=== PATIENT | female | born 1985 | race Caucasian/White ===

== ENCOUNTER → 2020-03-15 15:59 | Outpatient (CLI) | payer OTHER, SELFPAY ==
[2020-03-15 16:28] LABS: COVID19 -Nasal RAPID POSITIVE (Negative)
== END ==
PROVIDERS: Visit Provider Physician Assistant
DX: U07.1 COVID-19 (principal)
CPT/HCPCS: 87635

== ENCOUNTER → 2020-08-06 15:02 | Outpatient (CLI) | payer OTHER, SELFPAY ==
[2020-08-06] MEDS: COVID-19 VACC #1, MRNA(MOD) 100 MCG/0.5 ML VIAL IM (15:09)
== END ==
PROVIDERS: Visit Provider Internal Medicine
DX: Z23 Encounter for immunization (principal)
CPT/HCPCS: 0011A; 91301

== ENCOUNTER → 2020-09-04 08:34 | Outpatient (CLI) | payer OTHER, SELFPAY ==
[2020-09-04] MEDS: COVID-19 VACC #2, MRNA(MOD) 100 MCG/0.5 ML VIAL IM (08:41)
== END ==
PROVIDERS: Visit Provider Internal Medicine
DX: Z23 Encounter for immunization (principal)
CPT/HCPCS: 0012A; 91301

== ENCOUNTER → 2021-01-04 17:32 | Outpatient (CLI) | payer OTHER, SELFPAY ==
[2021-01-04 19:43] LABS: COVID19 -Nasal RAPID Negative (Negative)
== END ==
PROVIDERS: Visit Provider Nurse Practitioner
DX: Z20.822 Contact with and (suspected) exposure to COVID-19 (principal); J31.2 Chronic pharyngitis
CPT/HCPCS: 87070; 87635

== ENCOUNTER → 2021-08-03 09:19 | Outpatient (CLI) | payer OTHER, SELFPAY ==
[2021-08-03 09:59] LABS: COVID19 -Nasal RAPID Negative (Negative)
== END ==
PROVIDERS: Referring Provider Physician Assistant; Visit Provider Physician Assistant
DX: Z20.822 Contact with and (suspected) exposure to COVID-19 (principal)
CPT/HCPCS: 87635

== ENCOUNTER 2022-09-29 13:55 | Day surgery (SDC) | payer OTHER, SELFPAY ==
[2022-09-23 15:23] VITALS: BMI 21.1
[2022-09-29 14:19] VITALS: BP 138/81; PULSE 94; RESP 17; TEMP 36.8; O2SAT 100; BMI 21.1
--- NOTE | 2022-09-29 14:32 | SUR.PREOP ---
Patient states she is not receiving anesthesia for her procedure today and declines an IV. Patient educated that IV may be necessary in case of an emergency, but patient declines. Kerry Boone RN
--- NOTE | 2022-09-29 15:03 | PM.PREOP ---
Pre-operative Note Interval Note History & Physical reviewed/Exam performed by Physician: Yes Changes to H&P: No
[2022-09-29] MEDS: EPINEPHRINE INJ (15:37)
[2022-09-29] MEDS: BUPIVACAINE 0.5% INJ (15:37)
--- NOTE | 2022-09-29 15:50 | SUR.OPER ---
Lithotomy on padded OR bed, head on pillow, patient kept her hands at her sides, Legs secured in padded yellow fins stirrups. Warm blankets placed. patient awake for procedure and able to voice concerns.
[2022-09-29] MEDS: BUPIVACAINE LIPOSOME 266 MG/20 ML VIAL INJ (15:55)
[2022-09-29] MEDS: BACITRACIN 28 GM OINT 1 APPLIC TOP (16:09)
[2022-09-29 16:27] VITALS: BP 125/84; PULSE 95; RESP 16; TEMP 36.8; O2SAT 100
--- NOTE | 2022-09-29 16:37 | SUR.PHASEII ---
Patient arrived from OR to Phase II awake and condition stable. No IV present. Dressing CDI.
--- NOTE | 2022-09-29 16:52 | PM.OP.1 ---
Operative Date/Time/Diagnoses Date of procedure: 09/29/22 Time of procedure: 16:52 Pre-op diagnosis: Hemorrhoid small external and possible internal hemorrhoid Post-op diagnosis: other (Internal hemorrhoid was confirmed and banded) Procedure & Clinicians Procedure: External hemorrhoidectomy and internal hemorrhoid band 1 pile in the right posterior position Same procedure as scheduled: Yes Indications: Ms. Cee has been dealing with this hemorrhoid for quite some time even from before COVID pandemic. It is very problematic for her. I discussed with her the risks benefits and alternatives and she wished to proceed with the above procedure. Surgeon: Leslie Apodaca Click Yes if Unassisted: Yes Anesthesia Type: Local and None (No IV was started and no sedation or other medication was given during the procedure other than subcutaneous bupivacaine and Exparel) Operative Notes Procedure in detail: Patient was taken to the operating room and placed in a lithotomy position. Bilateral SCDs were placed and a time-out was performed. The perineum was then prepped with iodine and draped in the usual fashion. I then used a bupivacaine with epinephrine to begin a an anal block on the right side. Patient tolerated this very well with little discomfort. I then placed an anoscope within the anal canal and examined for internal hemorrhoids. There was a large internal hemorrhoid in the right posterior position. I then used the banding device to place 2 bands around this. Jeane tolerated this very well. I examined the other internal hemorrhoidal piles none of which seemed markedly engorged. I next turned my attention to the external portion of the right posterior hemorrhoid. I used a 15 blade scalpel to excise the redundant skin. I placed a 3-0 chromic suture around the base of this hemorrhoid and then continued the incision removing the hemorrhoidal tissue and taking care to leave the sphincter unaffected. The hemorrhoidal tissue was removed with its overlying skin and the 3-0 chromic suture was run in a locking stitch until I reached the more external skin and I switched to a non locking running stitch. This was tied. The area was hemostatic and next I used the Exparel on the right side to do a right anal block. Some Gelfoam was placed over the operative wound. This was then covered with mesh and gauze panties. The patient tolerated this very well and went in good condition to the postoperative care unit. Complications: none Post-operative Condition: stable Disposition: PACU
== END 2022-09-29 16:53 | disposition home or self-care (01) ==
PROVIDERS: PCP Family Medicine; Referring Provider Surgery; Visit Provider Surgery
PROC: (CPT 46255; principal; 2022-09-29 15:00)
DX: K64.8 Other hemorrhoids (principal); K64.4 Residual hemorrhoidal skin tags
CPT/HCPCS: 46255; C9290; J0171

== ENCOUNTER → 2022-10-18 10:10 | Outpatient (CLI) | payer OTHER, SELFPAY | PROVIDERS: PCP Family Medicine; Visit Provider Nurse Practitioner Family | DX: J02.9 Acute pharyngitis, unspecified (principal) | CPT/HCPCS: 87070 ==

== ENCOUNTER → 2024-02-27 16:41 | Outpatient (CLI) | payer OTHER, SELFPAY | PROVIDERS: PCP Nurse Practitioner Family; Visit Provider Physician Assistant Surgical | DX: R30.0 Dysuria (principal); R39.15 Urgency of urination; N39.0 Urinary tract infection, site not specified | CPT/HCPCS: 87086 ==